=== PATIENT | female | born 2000 | race Caucasian/White ===

== ENCOUNTER 2018-03-22 19:20 | Emergency (ER) | payer BC ==
[~2018-03-22] VITALS: Ht 182.9 cm; Wt 74.5 kg
[2018-03-22] MEDS ORDERED: VIVLODEX5 MG PO (19:35)
[2018-03-22 20:15] LABS: BASO % 0.3 % (0.0-2.0); EOS % 0.1 % (0-4.0); GRAN % 78.1 % (42.2-75.2); HEMATOCRIT 40.1 % (35.0-45.0); HEMOGLOBIN 13.8 g/dl (12.0-15.0); LYMPH % 14.2 % (20.0-51.0); MEAN CELL VOLUME 87 fl (80.0-95.0); MEAN CORPUSCULAR HEMOGLOBIN 30 pg (26.0-32.0); MEAN CORPUSCULAR HGB CONC 34 g/dl (33.0-37.0); MEAN PLATELET VOLUME 9.2 fl (7.4-10.4); MONO % 6.9 % (1.7-9.3); PLATELET COUNT 195 K/mm3 (130-400); RED BLOOD COUNT 4.63 M/mm3 (4.10-5.30); REDCELL DISTRIBUTION WIDTH-CV 13.1 % (11.5-14.5)
[2018-03-22 20:28] LABS: ALBUMIN 4.4 gm/dL (3.5-5.0); BILIRUBIN,TOTAL 0.6 mg/dL (0.0-1.0); CALCIUM 9.2 mg/dL (8.4-10.2); CREATININE, serum 1.02 mg/dL (0.52-1.25); POTASSIUM 3.7 mmol/L (3.4-5.0); TOTAL PROTEIN 8.2 gm/dL (6.4-8.2)
[2018-03-22 20:41] LABS: C-REACTIVE PROTEIN 22.9 mg/dL (0.0-0.9)
[2018-03-22 20:56] LABS: COLLECTION METHOD CLEAN CATCH
[2018-03-22 21:16] LABS: PH 5 (5-8); URINE APPEARANCE Clear; URINE BACTERIA None Seen /hpf; URINE BILIRUBIN Negative (NEGATIVE); URINE BLOOD Negative (NEGATIVE); URINE COLOR Yellow; URINE GLUCOSE Negative (NEGATIVE); URINE KETONE 2+ (NEGATIVE); URINE LEUKOCYTE ESTERASE Trace (NEGATIVE); URINE NITRATE Negative (NEGATIVE); URINE PROTEIN(semi-quant) 2+ (NEGATIVE); URINE UROBILINOGEN Negative (NEGATIVE)
[2018-03-22 22:22] VITALS: BP 112/63; PULSE 91; TEMP 98.3
== END 2018-03-22 23:01 | disposition home or self-care (01) ==
LOC: COL.ER 19:20
PROVIDERS: Family Medicine
DX: R50.9 Fever, unspecified (principal); E86.0 Dehydration
CPT/HCPCS: J7030

== ENCOUNTER → 2020-03-24 | Outpatient (CLI) | payer BC ==
[~2020-03-24] MED LIST: MACROBID 1100 MG/CAP PO; VIVLODEX5 MG PO
== END ==
LOC: COL.RAD 14:50
DX: K63.89 Other specified diseases of intestine (principal)

== ENCOUNTER 2020-03-25 09:25 | Emergency (ER) | payer BC ==
[~2020-03-25] VITALS: Ht 182.9 cm; Wt 82.7 kg
[~2020-03-25 09:25] MED LIST changes: -MACROBID 1100 MG/CAP PO
[2020-03-25 09:31] VITALS: TEMP 98.4
[2020-03-25 09:50] LABS: COLLECTION METHOD CLEAN CATCH
[2020-03-25 09:58] LABS: MUCOUS Present /lpf; PH 5 (5-8); URINE APPEARANCE Cloudy; URINE BACTERIA None Seen /hpf; URINE BILIRUBIN Negative (NEGATIVE); URINE BLOOD Negative (NEGATIVE); URINE COLOR Yellow; URINE GLUCOSE Negative (NEGATIVE); URINE KETONE Negative (NEGATIVE); URINE LEUKOCYTE ESTERASE 3+ (NEGATIVE); URINE NITRATE Negative (NEGATIVE); URINE PROTEIN(semi-quant) Negative (NEGATIVE); URINE UROBILINOGEN Negative (NEGATIVE)
[2020-03-25 10:09] LABS: BASO # 0.1 (0.0-0.2); BASO % 0.9 % (0.0-2.0); EOS # 0.2 (0.0-0.7); EOS % 2.4 % (0-4.0); GRAN # 3.4 (1.4-6.5); GRAN % 48.5 % (42.2-75.2); HEMATOCRIT 37.8 % (37.0-47.0); HEMOGLOBIN 12.3 g/dl (12.5-16.0); LYMPH # 2.8 (1.2-3.4); LYMPH % 40.3 % (20.0-51.0); MEAN CELL VOLUME 89 fl (80.0-100.0); MEAN CORPUSCULAR HEMOGLOBIN 29 pg (27.0-31.0); MEAN CORPUSCULAR HGB CONC 33 g/dl (33.0-37.0); MEAN PLATELET VOLUME 9.9 fl (7.4-10.4); MONO # 0.6 (0.1-0.6); MONO % 7.8 % (1.7-9.3); PLATELET COUNT 241 K/mm3 (130-400); RED BLOOD COUNT 4.27 M/mm3 (4.10-5.30); REDCELL DISTRIBUTION WIDTH-CV 12.7 % (11.5-14.5)
[2020-03-25 10:27] LABS: ALBUMIN 3.6 gm/dL (3.5-5.0); BILIRUBIN,TOTAL 0.6 mg/dL (0.0-1.0); CREATININE, serum 0.9 (0.52-1.25); POTASSIUM 3.8 mmol/L (3.4-5.0); TOTAL PROTEIN 6.8 gm/dL (6.4-8.2)
[2020-03-25] MEDS ORDERED: MACROBID 1100 MG/CAP PO (11:37)
[2020-03-25 14:30] VITALS: BP 121/72; PULSE 61
== END 2020-03-25 11:46 | disposition home or self-care (01) ==
LOC: COL.ER 09:25
PROVIDERS: Emergency Medicine
DX: R10.9 Unspecified abdominal pain (principal); Z88.2 Allergy status to sulfonamides
CPT/HCPCS: J1170; J2405; J7030; Q9967

== ENCOUNTER 2021-01-09 05:18 | Emergency (ER) | payer BC, OTHER ==
[~2021-01-09] VITALS: Ht 182.9 cm; Wt 80.0 kg
[~2021-01-09 05:18] MED LIST changes: +MACROBID 1100 MG/CAP PO
[2021-01-09 05:42] LABS: BASO # 0.1 K/mm3 (0.0-0.2); BASO % 0.7 % (0.0-2.0); EOS # 0.1 K/mm3 (0.0-0.7); EOS % 1.2 % (0-4.0); GRAN # 5.8 K/mm3 (1.4-6.5); HEMATOCRIT 40.3 % (37.0-47.0); HEMOGLOBIN 13.4 g/dl (12.5-16.0); LYMPH # 4.1 K/mm3 (1.2-3.4); LYMPH % 37.1 % (20.0-51.0); MEAN CELL VOLUME 88 fl (80.0-100.0); MEAN CORPUSCULAR HEMOGLOBIN 29 pg (27.0-31.0); MEAN CORPUSCULAR HGB CONC 33 g/dl (33.0-37.0); MONO # 0.8 K/mm3 (0.1-0.6); MONO % 7.7 % (1.7-9.3); PLATELET COUNT 278 K/mm3 (130-400); RED BLOOD COUNT 4.58 M/mm3 (4.10-5.30); REDCELL DISTRIBUTION WIDTH-CV 12.1 % (11.5-14.5)
[2021-01-09 06:07] LABS: ALBUMIN 3.6 gm/dL (3.5-5.0); BILIRUBIN,TOTAL 0.6 mg/dL (0.2-1.2); CALCIUM 9.9 mg/dL (8.4-10.2); CREATININE, serum 0.83 mg/dL (0.57-1.11); POTASSIUM 3.9 mmol/L (3.5-4.5); TOTAL PROTEIN 7.6 gm/dL (6.2-8.1)
[2021-01-09] MEDS ORDERED: MEDROL 4MG DOSPA4 MG PO (09:49)
[2021-01-09 10:24] VITALS: BP 124/78; PULSE 67
== END 2021-01-09 10:24 | disposition home or self-care (01) ==
LOC: COL.ER 05:18
PROVIDERS: Student in an Organized Health Care Education/Training Program
DX: R10.0 Acute abdomen (principal); M79.605 Pain in left leg; Z32.02 Encounter for pregnancy test, result negative
CPT/HCPCS: A9585; J1885; J2270